=== PATIENT | male | born 1950 | race Caucasian/White ===

== ENCOUNTER → 2023-10-15 12:24 | Outpatient (REF) | payer MEDICARE, OTHER, SELFPAY | LOC: RAD 12:24 | PROVIDERS: ATTENDING PHYSICIAN Internal Medicine Geriatric Medicine | DX: E11.9 Type 2 diabetes mellitus without complications (principal); E78.2 Mixed hyperlipidemia; E53.8 Deficiency of other specified B group vitamins; E78.5 Hyperlipidemia, unspecified; I10 Essential (primary) hypertension; R74.8 Abnormal levels of other serum enzymes; K76.0 Fatty (change of) liver, not elsewhere classified; Z79.899 Other long term (current) drug therapy; R31.0 Gross hematuria; Z13.89 Encounter for screening for other disorder; R19.7 Diarrhea, unspecified; I87.2 Venous insufficiency (chronic) (peripheral); E11.42 Type 2 diabetes mellitus with diabetic polyneuropathy; M25.561 Pain in right knee; I73.9 Peripheral vascular disease, unspecified | CPT/HCPCS: 73564 ==

== ENCOUNTER → 2023-10-19 13:57 | Outpatient (REF) | payer MEDICARE, OTHER, SELFPAY | LOC: MRI 3T 13:57 | PROVIDERS: ATTENDING PHYSICIAN Internal Medicine Geriatric Medicine | DX: M76.899 Other specified enthesopathies of unspecified lower limb, excluding foot (principal) | CPT/HCPCS: 73721 ==

== ENCOUNTER → 2023-12-04 10:02 | Outpatient (REF) | payer MEDICARE, OTHER, SELFPAY | LOC: RAD 10:02 | PROVIDERS: ATTENDING PHYSICIAN Internal Medicine Geriatric Medicine | DX: E11.51 Type 2 diabetes mellitus with diabetic peripheral angiopathy without gangrene (principal); I70.203 Unspecified atherosclerosis of native arteries of extremities, bilateral legs; I87.2 Venous insufficiency (chronic) (peripheral); E78.2 Mixed hyperlipidemia; E53.8 Deficiency of other specified B group vitamins; E78.5 Hyperlipidemia, unspecified; I10 Essential (primary) hypertension; R74.8 Abnormal levels of other serum enzymes; K76.0 Fatty (change of) liver, not elsewhere classified; Z79.899 Other long term (current) drug therapy; R31.0 Gross hematuria; Z13.89 Encounter for screening for other disorder; R19.7 Diarrhea, unspecified; E11.42 Type 2 diabetes mellitus with diabetic polyneuropathy; M25.561 Pain in right knee | CPT/HCPCS: 93925; 93970 ==

== ENCOUNTER 2024-09-26 06:20 | Day surgery (SDC) | payer MEDICARE, OTHER, SELFPAY ==
[2024-09-26 07:51] LABS: Glucose - Point of Care 173 mg/dl (70-99)
== END 2024-09-26 09:42 | disposition home or self-care (01) ==
LOC: GI 06:20
PROVIDERS: ATTENDING PHYSICIAN Internal Medicine Gastroenterology
DX: Z12.11 Encounter for screening for malignant neoplasm of colon (principal); K63.89 Other specified diseases of intestine; K64.0 First degree hemorrhoids; K57.30 Diverticulosis of large intestine without perforation or abscess without bleeding; D12.3 Benign neoplasm of transverse colon; K63.5 Polyp of colon; K62.1 Rectal polyp; Z98.0 Intestinal bypass and anastomosis status; Z86.0100 Personal history of colon polyps, unspecified
CPT/HCPCS: 45385; 45380; 88305; 82962

== ENCOUNTER → 2025-02-08 10:04 | Outpatient (REF) | payer MEDICARE, OTHER, SELFPAY | LOC: RCS 10:04 | PROVIDERS: ATTENDING PHYSICIAN Internal Medicine Geriatric Medicine | DX: E11.21 Type 2 diabetes mellitus with diabetic nephropathy (principal) | CPT/HCPCS: 93017; 93350 ==

== ENCOUNTER → 2025-03-06 09:54 | Outpatient (REF) | payer MEDICARE, OTHER, SELFPAY | LOC: RAD 09:54 | PROVIDERS: ATTENDING PHYSICIAN Internal Medicine Geriatric Medicine | DX: E11.9 Type 2 diabetes mellitus without complications (principal); E78.2 Mixed hyperlipidemia; E53.8 Deficiency of other specified B group vitamins; I10 Essential (primary) hypertension; K76.0 Fatty (change of) liver, not elsewhere classified; Z13.89 Encounter for screening for other disorder; R19.7 Diarrhea, unspecified; I87.2 Venous insufficiency (chronic) (peripheral); E11.42 Type 2 diabetes mellitus with diabetic polyneuropathy; M25.561 Pain in right knee; I73.9 Peripheral vascular disease, unspecified; E11.21 Type 2 diabetes mellitus with diabetic nephropathy; R06.09 Other forms of dyspnea | CPT/HCPCS: 71046 ==